=== PATIENT | female | born 1990 | race Caucasian/White ===

== ENCOUNTER 2018-06-21 05:40 | Day surgery (SDC) | payer OTHER ==
[~2018-06-21] VITALS: Ht 167.6 cm; Wt 80.7 kg
[~2018-06-21 05:40] MED LIST: ACID GONE ANTA355 ML PO; BENTYL10 MG PO; DIGESTIVE ENZY1 EAC1 PO; DULCOLAX5 MG PO; FISH OIL 1,0001 EAC3 PO; IBUPROFEN600 MG PO; MULTI VITAMIN1 EACH PO; NORCO 5-325 TA1 EACH PO; PRENATAL VITAM1 EAC8 PO; PROBIOTIC1 EAC1 PO; PROMETHAZINE12.5 M1 PO; VICODIN 5-3001 EACH PO
[2018-06-21] MEDS ORDERED: NORCO 5-325 TA1 EACH PO (10:58)
--- NOTE | 2018-06-22 06:38 | OR ---
[facility] [address], [place] [address] Signed DATE OF OPERATION: 06/21/2018 SURGEON: Taco Palafox MD PREOPERATIVE DIAGNOSES: Cholecystitis, cholelithiasis. POSTOPERATIVE DIAGNOSES: Cholecystitis, cholelithiasis. PROCEDURE: Laparoscopic cholecystectomy with intraoperative cholangiogram. ESTIMATED BLOOD LOSS: None. FINDINGS: The intraoperative cholangiogram was unremarkable. Kenton had multiple 3-4 mm stones within the gallbladder. INDICATIONS: Kenton is a 27-year-old female, who just had her 2nd child a little over a month and a half ago. [place] through the , she was having significant right upper quadrant abdominal pain. It was radiating through to her back. Her symptoms continued even after the baby was born. She ended up in the emergency room. A CT scan showed multiple small tiny layering stones in the gallbladder. The common bile duct was slightly dilated at 8 mm. At that time, her AST was up a little at 46, ALT was up a little at 58, but alkaline phosphatase was normal at 103 and a total bilirubin was normal at 0.2. Also her preoperative labs have normalized. 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 She was then referred to me as the local general surgeon. I met with Kenton and her boyfriend in the office. I gave her a [employer] brochure on the gallbladder. She understands the location of function of the gallbladder. She understands laparoscopic versus open cholecystectomy. We did review the expected intraop and postop course. She understands there is risk of surgery including, but not limited to bleeding, infection, scarring, change in contour of the skin, damage to bowel, damage to main bile duct, and incisional hernias. She had expressed understanding and wished to proceed. PROCEDURE NOTE: I have met with Kenton in our preop area. After this, she was taken in the operating Electronically Signed By: TACO PALAFOX MD 06/22/18 0638 PATIENT NAME: KENTON MATTHEW OPERATIVE REPORT DATE OF : 89 REPORT #: [id number] PHYSICIAN: TACO PALAFOX MD PCP: NO PRIMARY CARE PHYSICIAN REPORT IS CONFIDENTIAL AND NOT TO BE RELEASED WITHOUT AUTHORIZATION [facility] [address], [place] [address] Signed room and placed in the supine position under general endotracheal tube anesthesia. She was given preoperative antibiotics along with subcutaneous heparin. SCDs were utilized. She was then prepped and draped in the usual sterile fashion. We placed our trocars in the usual positions under direct visualization without difficulty. Her gallbladder was grasped and elevated in the right upper quadrant. Pictures were taken throughout for photodocumentation. After this, the triangle of Calot was dissected free and a clip had been placed across the cystic artery and it was divided. The intraoperative cholangiocatheter was inserted into the cystic duct. The intraoperative cholangiogram was then performed and this was found to be unremarkable. The contrast flowed readily into the duodenum and no visible filling defects were detected. After this, the cystic duct stump was secured with a PDS Endoloop and 2 clips were placed across the cystic duct stump to pierre its location. The gallbladder was then carefully and slowly removed from the gallbladder fossa with the help of the cautery and placed into an EndoCatch bag. The right upper quadrant was irrigated and suctioned out until clear. After this, we used our laparoscopic suturing device to pass 0 Vicryl suture on either side of the fascia of the subxiphoid trocar site. The gas was allowed to escape and all the trocars were then removed. The gallbladder was opened on the back table by our circulating nurse. Photodocumentation was obtained of the inside the gallbladder and multiple stones. The fascia of the infraumbilical trocar site was then closed with interrupted [id number] and simple 0 Vicryl sutures. Each trocar site was irrigated and suctioned out until clear. Local anesthetic was copiously injected into all trocar sites. The skin and dermis of each trocar site were closed with interrupted 3-0 subcuticular Monocryl sutures. Steri-Strips were applied to all incisions. Dry gauze and tape were applied over this. Kenton was then awakened from her anesthesia, extubated in the OR, and taken to recovery room in stable condition. Taco Palafox MD ALB/MODL /[id number] cc: MD Taco Lofton MD Electronically Signed By: TACO PALAFOX MD 06/22/18 0638 PATIENT NAME: KENTON MATTHEW OCTOBER OPERATIVE REPORT DATE OF : [birth year] REPORT #: [id number] PHYSICIAN: TACO PALAFOX MD PCP: NO PRIMARY CARE PHYSICIAN REPORT IS CONFIDENTIAL AND NOT TO BE RELEASED WITHOUT AUTHORIZATION [address], [place] [address] Signed Copies: ZULMA BHATTI MD, ANDREW L MD ~ Electronically Signed By: TACO PALAFOX MD 06/22/18 0638 PATIENT NAME: KENTON MATTHEW ANJU OPERATIVE REPORT DATE OF : [birth year] REPORT #: [id number] PHYSICIAN: TACO PALAFOX MD PCP: NO PRIMARY CARE PHYSICIAN REPORT IS CONFIDENTIAL AND NOT TO BE RELEASED WITHOUT AUTHORIZATION
== END 2018-06-21 11:05 | disposition home or self-care (01) ==
LOC: DS 05:40
PROVIDERS: Colon & Rectal Surgery
PROC: BF13YZZ Fluoroscopy of Gallbladder and Bile Ducts using Other Contrast (ICD-10-PCS; 2018-06-21)
PROC: 0FT44ZZ Resection of Gallbladder, Percutaneous Endoscopic Approach (ICD-10-PCS; principal; 2018-06-21 06:45)
DX: K80.10 Calculus of gallbladder with chronic cholecystitis without obstruction (principal); F17.210 Nicotine dependence, cigarettes, uncomplicated; G43.909 Migraine, unspecified, not intractable, without status migrainosus; Z79.899 Other long term (current) drug therapy
CPT/HCPCS: 00790; 74300; 88304; J0330; J0690; J1100; J1170; J1644; J1885; J2250; J2270; J2274; J2405; J2704; J3010; J7120; Q9967